=== PATIENT | female | born 1980 | race Caucasian/White ===

== ENCOUNTER 2025-01-25 19:28 | Emergency (ER) | payer OTHER ==
[2025-01-25] MEDS ORDERED: METHYLPREDNISOLONE 125 MG INJ ONE (22:09)
[2025-01-25] MEDS ORDERED: DIPHENHYDRAMINE 50 MG/ML VIAL ONE (22:10)
[2025-01-25] MEDS ORDERED: FAMOTIDINE 20 MG/2 ML VIAL IV ONE (22:10)
[2025-01-25] MEDS ORDERED: NA CHLORIDE 0.9% 1,000 ML ONE (22:10)
[2025-01-25 22:16] LABS: Absolute Lymphocytes (CBC) 2.5 K/uL (0.7-4.9); Hematocrit 30.1 % (36.0-45.0); Hemoglobin 10.1 g/dL (12.0-15.0); MCH 28.2 pg (27.0-35.0); MCHC 33.5 g/dL (32.0-36.0); MCV 84.2 fL (80-100); MPV 8.4 fL (7.6-11.3); Nucleated RBC Absolute Count 0.0 (0-0); Nucleated Red Blood Cells % 0.0 % (0-0); RBC Red Blood Cell Count 3.57 M/uL (3.86-4.86); White Blood Count 7.80 thou/uL (4.3-10.9)
[2025-01-25 22:24] LABS: Urine Culture Reflex Order REFLEXED; Urine Microscopic Reflex YN ORDER UMIC
[2025-01-25 22:34] LABS: ALT/SGPT 30 U/L (13-56); AST/SGOT 31 U/L (15-37); Albumin 3.8 g/dL (3.4-5.0); Albumin/Globulin Ratio 1.0 (1.1-1.8); Alkaline Phosphatase 79 U/L (45-117); Anion Gap 9.0 mEq/L (5.0-15.0); BUN Blood Urea Nitrogen 24 mg/dL (7-18); Bilirubin Indirect, Calculated 0.3 mg/dL (0.2-0.8); Globulin 3.7 g/dL (2.3-3.5); Glucose Level 97 mg/dL (74-106); Magnesium 2.1 mg/dL (1.6-2.4); Potassium 3.0 mEq/L (3.5-5.1); Troponin High Sensitivity 5.3 pg/mL (<58.9)
[2025-01-25] MEDS ORDERED: POTASSIUM 25 MEQ EFFERV TAB ONE (23:57)
[2025-01-26 02:33] LABS: METHAMPHETAM POSITIVE (NEGATIVE); THC Cannibis NEGATIVE (NEGATIVE)
--- NOTE | 2025-01-26 03:18 | EDPHYS ---
Physician Documentation [facility] Name: Zelda Leon Age: 44 yrs Sex: Female : 1980 Arrival Date: 01/25/2025 Time: 19:28 Bed 14 Private MD: ED Physician Carlo Russ HPI: 01/25 21:30 This 44 yrs old Female presents to ER via Ambulatory with complaints of body cp pain/burning feeling, Rash. 21:30 The patient's rash thought to be caused by an unknown cause. cp 21:30 The rash is located on the body diffusely. The rash can be described as urticarial, cp hives. Onset: The symptoms/episode began/occurred suddenly, just prior to arrival. Associated signs and symptoms: Pertinent positives: burning sensation, fever, itching, nausea. Severity of symptoms: in the emergency department the symptoms are worse moderately. Treatment given at home: none. 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 - Infectious Disease History:: Denies. - Social history:: Smoking status: Patient reports the use of cigarette tobacco products, smokes one-half pack cigarettes per day, Patient/guardian denies using alcohol, street drugs, IV drugs. ROS: 21:35 Constitutional: Positive for body aches, fever, Negative for poor PO intake, cp 21:35 Cardiovascular: Negative for chest pain, edema, palpitations, cp 21:35 Respiratory: Negative for cough, shortness of breath, wheezing, 21:35 Abdomen/GI: Negative for abdominal pain, vomiting, diarrhea, constipation, 21:35 Skin: Positive for rash, diffusely, 21:35 Neuro: Negative for altered mental status, cp 21:35 All other systems are negative, Exam: 21:45 Constitutional: The patient appears in no acute distress, alert, awake, cp non-diaphoretic, non-toxic, well developed, well nourished, anxious, uncomfortable, 21:45 Head/Face: Normocephalic, atraumatic. cp 21:45 Eyes: Periorbital structures: appear normal, Pupils: equal, round, and reactive to light and accomodation, Extraocular movements: intact throughout, Conjunctiva: normal, no exudate, no injection, Sclera: no appreciated abnormality, Lids and lashes: appear normal, bilaterally, 21:45 ENT: External ear(s): are unremarkable, Mouth: is normal, Posterior pharynx: Airway: no evidence of obstruction, patent, 22:21 ECG was reviewed by the Attending Physician. cp Vital Signs: 20:41 BP 117 / 85; Pulse 108; Resp 20; Temp 98.1; Pulse Ox 98% ; Weight 63.5 kg; Height 5 ft. bp 1 in. ; 01/26 00:12 BP 107 / 59; Pulse 94; Resp 16; Pulse Ox 100% on R/A; kd4 02:03 BP 104 / 69; Pulse 74; Pulse Ox 100% on R/A; kd4 05:02 BP 96 / 59; Pulse 78; Pulse Ox 96% on R/A; kd4 06:08 BP 93 / 61; Pulse 74; Resp 16; Pulse Ox 99% ; kd4 06:52 BP 103 / 69; Pulse 70; Resp 16; Pulse Ox 100% on R/A; kd4 07:19 BP 113 / 72; Pulse 60; Resp 16; Pulse Ox 96% on R/A; ll1 01/25 20:41 Body Mass Index 26.45 (63.50 kg, 154.94 cm) bp Osmel Coma Score: 01/25 22:30 Eye Response: spontaneous(4). Verbal Response: oriented(5). Motor Response: obeys kd4 commands(6). Total: 15. MDM: 20:25 Medical Screening Exam initiated cp 01/26 19:08 Differential diagnosis: impetigo, varicella, allergic reaction, parasite infection, sp4 carcinoma. Data reviewed: vital signs, nurses notes, lab test result(s). Consideration of Admission/Observation Escalation of care including admission/observation considered. ED course: Patient woke up, stable for discharge home. 19:13 ED course: Patient did receive some Benadryl for allergic reaction. Patient was very sp4 drowsy. But manage to wake up patient at 7 AM. She was found stable for discharge home.. 01/25 21:25 Order name: Basic Metabolic Panel; Complete Time: 23:50 cp 01/25 23:50 Interpretation: Normal except: K 3.0; BUN 24; GFR 89. cp 01/25 21:25 Order name: CBC with Diff; Complete Time: 23:50 cp 01/25 23:50 Interpretation: Normal except: RBC 3.57; HGB 10.1; HCT 30.1; PLT 430; RDW 18.2. cp 01/25 21:25 Order name: LFT's; Complete Time: 23:50 cp 01/25 23:51 Interpretation: Normal except: GLOB 3.7; A/G 1.0. cp 01/25 21:25 Order name: Magnesium; Complete Time: 23:50 cp 01/25 21:25 Order name: Troponin HS; Complete Time: 23:50 cp 01/25 21:25 Order name: Lactate w/ 2H reflex if indic.; Complete Time: 23:50 cp 01/25 21:25 Order name: UA Rfx Neftaly Cult if indicated; Complete Time: 23:50 cp 01/25 23:50 Interpretation: Normal except: UCLA Turbid; Urine SG > 1.030; UKET 2+; UPROT TRACE; cp UWBC 10-20; URBC 5-10. 01/25 22:29 Order name: Urine Culture EDMS 01/26 01:13 Order name: UDS; Complete Time: 19:16 cp 01/25 21:25 Order name: XRAY Chest (1 view); Complete Time: 19:16 cp 01/25 21:25 Order name: Cardiac monitoring; Complete Time: 22:19 cp 01/25 21:25 Order name: EKG - Nurse/Tech; Complete Time: 22:18 cp 01/25 21:25 Order name: IV Saline Lock; Complete Time: 22:19 cp 01/25 21:25 Order name: Labs collected and sent; Complete Time: 22:19 cp 01/25 21:25 Order name: O2 Per Protocol; Complete Time: 22:19 cp 01/25 21:25 Order name: O2 Sat Monitoring; Complete Time: 22:19 cp EC/29 22:21 Rate is 103 beats/min. Rhythm is regular. HI interval is normal. QRS interval is cp normal. QT interval is normal. Interpreted by me. Reviewed by me. Administered Medications: 22:30 Drug: MethylPrednisoLONE IVP 125 mg IVP once Route: IVP; Site: right antecubital; kd4 01/26 01:06 Follow up: Response: No adverse reaction kd4 01/25 22:30 Drug: diphenhydrAMINE IVP 50 mg IVP once Route: IVP; Site: right antecubital; kd4 01/26 01:06 Follow up: Response: No adverse reaction kd4 01/25 22:30 Drug: Famotidine IVP 20 mg IVP once; dilute with 10 mL 0.9% NaCl; give over 2 minutes kd4 Route: IVP; Site: right antecubital; 01/26 01:06 Follow up: Response: No adverse reaction kd4 01/25 22:30 Drug: NS 0.9% IV 1000 ml IV at 1000 ml once; to be given as a bolus over 90 minutes kd4 Route: IV; Rate: 1000 ml; Site: right antecubital; 01/26 01:06 Follow up: IV Status: Completed infusion kd4 07:03 Drug: Potassium PO Effervescent Tablet 50 mEq PO once; dissolve in 4 ounces of water or kd4 juice Route: PO; 07:20 Follow up: Response: No adverse reaction ll1 07:03 Drug: Potassium PO Effervescent Tablet 25 mEq PO once; dissolve in 4 ounces of water or kd4 juice Route: PO; 07:20 Follow up: Response: No adverse reaction ll1 Disposition: 19:07 Co-signature as Attending Physician, Carlo Russ MD I agree with the assessment sp4 and plan of care. I reviewed the patient's care provided by Advanced Practice Provider \T\ agree w/ the diagnosis \T\ care plan. I personally saw the pt \T\ performed a substantive portion of the visit, incldng all aspects of the (History/Exam/Medical Decision Making). Disposition Summary: 01/26/25 03:17 Discharge Ordered Notes: Location: Home cp Problem: new cp Symptoms: have improved cp Condition: Stable cp Diagnosis - Urticaria, unspecified cp - Other and unspecified allergy cp Followup: cp - With: Private Physician - When: 2 - 3 days - Reason: Recheck today's complaints Discharge Instructions: - Discharge Summary Sheet cp - Allergies, Adult cp - Hives cp Forms: - Medication Reconciliation Form cp - Antibiotic Education cp - Prescription Opioid Use cp - Patient Portal Instructions cp - Leadership Thank You Letter cp Prescriptions: - Hydroxyzine HCl 25 mg Oral Tablet - take 1 tablet ORAL route every 6 hours As needed; 30 tablet; Refills: 0, cp Product Selection Permitted - Pepcid 20 mg Oral Tablet - take 1 tablet ORAL route every 12 hours for 10 days; 20 tablet; Refills: 0, cp Product Selection Permitted - Prednisone 20 mg Oral tablet - take 2.5 tablet ORAL route once daily for 5 days; 12.5 tablet; Refills: 0, cp Product Selection Permitted Signatures: Dispatcher [employer] EDMS Matt Matson PA-C PAChicho Cabrera cp, RN RN bp Carlo Russ MD MD sp4 Abiola Evans RN RN kd4 Min Mcgregor RN ll1 Corrections: (The following items were deleted from the chart) 01/25 21:25 21:25 BASIC METABOLIC PANEL+C.LAB.BRZ ordered. EDMS EDMS 21: 21:25 CBC+H.LAB.BRZ ordered. EDMS EDMS 21:25 21:25 HEPATIC FUNCTION+C.LAB.BRZ ordered. EDMS EDMS 21:25 21:25 MAGNESIUM+C.LAB.BRZ ordered. EDMS EDMS 21:25 21:25 Troponin High Sensitivity+C.LAB.BRZ ordered. EDMS EDMS 21:25 21:25 LACTATE+C.LAB.BRZ ordered. EDMS EDMS 21:25 21:25 UA Rfx Neftaly Cult if indicated+U.LAB.BRZ ordered. EDMS EDMS :26 21:26 Chest Single View+RAD.RAD.BRZ ordered. EDMS EDMS 01/27 02:26 01/26 19:17 Constitutional: Negative for fever, chills, and weight loss, positive for cp acute onset of a rash sp4
--- NOTE | 2025-01-26 03:18 | ER ---
Nurse's Notes [facility] Name: Zelda Leon Age: 44 yrs Sex: Female : 1980 Arrival Date: 01/25/2025 Time: 19:28 Bed 14 Private MD: Diagnosis: Urticaria, unspecified;Other and unspecified allergy Presentation: 01/25 20:22 Note NOTE IN LOBBY WHEN CALLED \T\2019. 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 STARTED FEELING bp BURNING IN HER STOMACH. NOW HAVING A BURNING FEELING ALL OVER HER BODY. Coronavirus screen: At this time, the client does not indicate any symptoms associated with coronavirus-19. Ebola Screen: No symptoms or risks identified at this time. Initial Sepsis Screen: Does the patient meet any 2 criteria? HR > 90 bpm. Yes Does the patient have a suspected source of infection? No. Patient's initial sepsis screen is negative. Risk Assessment: Do you want to hurt yourself or someone else? Patient reports no desire to harm self or others. Onset of symptoms was January 25, 2025. 20:41 Method Of Arrival: Ambulatory bp 20:41 Acuity: LINUS 3 bp Triage Assessment: 20:43 General: Appears in no apparent distress. comfortable, unkempt, Behavior is agitated, bp anxious, restless. Pain: Complains of pain in abdomen AND ALL OVER BODY. Respiratory: Airway is patent Trachea Respiratory effort is even, unlabored, Respiratory pattern is regular, symmetrical. GI: Reports lower abdominal pain. Derm: Reports burning. 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 - Infectious Disease History:: Denies. - Social history:: Smoking status: Patient reports the use of cigarette tobacco products, smokes one-half pack cigarettes per day, Patient/guardian denies using alcohol, street drugs, IV drugs. Screenin:30 [facility] ED Fall Risk Assessment (Adult) History of falling in the last 3 months, kd4 including since admission No falls in past 3 months (0 pts) Confusion or Disorientation No (0 pts) Intoxicated or Sedated No (0 pts) Impaired Gait No (0 pts) Mobility Assist Device Used No (0 pt) Altered Elimination No (0 pt) Score/Fall Risk Level 0 - 2 = Low Risk Oriented to surroundings, Maintained a safe environment. Abuse screen: Denies threats or abuse. Nutritional screening: No deficits noted. Tuberculosis screening: No symptoms or risk factors identified. Assessment: 22:30 General: C/o of generalized burning sensation. Neuro: Denies weakness dizziness. kd4 Respiratory: Denies shortness of breath. 23:36 General: patient in bed sleeping. kd4 01/26 00:11 General: Patient sleeping , attempt to wake patient to administer potassium but patient kd4 very sleepy, will answer but not staying up enough to take med. 03:31 General: D/c order placed by PA whenever patient awaken. Patient sleeping . kd4 Vital Signs: 01/25 20:41 BP 117 / 85; Pulse 108; Resp 20; Temp 98.1; Pulse Ox 98% ; Weight 63.5 kg; Height 5 ft. bp 1 in. ; 01/26 00:12 BP 107 / 59; Pulse 94; Resp 16; Pulse Ox 100% on R/A; kd4 02:03 BP 104 / 69; Pulse 74; Pulse Ox 100% on R/A; kd4 05:02 BP 96 / 59; Pulse 78; Pulse Ox 96% on R/A; kd4 06:08 BP 93 / 61; Pulse 74; Resp 16; Pulse Ox 99% ; kd4 06:52 BP 103 / 69; Pulse 70; Resp 16; Pulse Ox 100% on R/A; kd4 07:19 BP 113 / 72; Pulse 60; Resp 16; Pulse Ox 96% on R/A; ll1 01/25 20:41 Body Mass Index 26.45 (63.50 kg, 154.94 cm) bp Osmel Coma Score: 01/25 22:30 Eye Response: spontaneous(4). Verbal Response: oriented(5). Motor Response: obeys kd4 commands(6). Total: 15. ED Course: 19:33 Patient arrived in ED. gm2 19:35 [facility] cp 19:35 Carlo Russ MD is Attending Physician. cp 20:43 Triage completed. bp 20:43 Arm band placed on right wrist. Patient placed in an exam room, on a stretcher. bp 20:44 Abiola Evans, RN is Primary Nurse. kd4 22:03 XRAY Chest (1 view) In Process Unspecified. EDMS 22:19 Initial lab(s) drawn, by laboratory tester, sent to lab. Inserted saline lock: 20 gauge in right ts3 antecubital area, using aseptic technique. Blood collected. Flushed with 10 mL NS. 22:19 EKG done, by tool repair technician. reviewed by Matt Matson PA-C. ts3 22:30 Patient has correct armband on for positive identification. Side rails up X2. Adult w/ kd4 patient. Client placed on continuous cardiac and pulse oximetry monitoring. NIBP monitoring applied. photographic enlarger operator on. Pulse ox on. NIBP on. 01/26 07:00 Provided Education on: ER procedures and process. ll1 07:19 No provider procedures requiring assistance completed. IV discontinued, intact, ll1 bleeding controlled, No redness/swelling at site. Pressure dressing applied. Administered Medications: 01/25 22:30 Drug: MethylPrednisoLONE IVP 125 mg IVP once Route: IVP; Site: right antecubital; kd4 01/26 01:06 Follow up: Response: No adverse reaction kd4 01/25 22:30 Drug: diphenhydrAMINE IVP 50 mg IVP once Route: IVP; Site: right antecubital; kd4 01/26 01:06 Follow up: Response: No adverse reaction kd4 01/25 22:30 Drug: Famotidine IVP 20 mg IVP once; dilute with 10 mL 0.9% NaCl; give over 2 minutes kd4 Route: IVP; Site: right antecubital; 01/26 01:06 Follow up: Response: No adverse reaction kd4 01/25 22:30 Drug: NS 0.9% IV 1000 ml IV at 1000 ml once; to be given as a bolus over 90 minutes kd4 Route: IV; Rate: 1000 ml; Site: right antecubital; 01/26 01:06 Follow up: IV Status: Completed infusion kd4 07:03 Drug: Potassium PO Effervescent Tablet 50 mEq PO once; dissolve in 4 ounces of water or kd4 juice Route: PO; 07:20 Follow up: Response: No adverse reaction 1 07:03 Drug: Potassium PO Effervescent Tablet 25 mEq PO once; dissolve in 4 ounces of water or kd4 juice Route: PO; 07:20 Follow up: Response: No adverse reaction ll1 Medication: 01/25 22:30 VIS not applicable for this client. kd4 Outcome: 01/26 03:17 Discharge ordered by . harinder 07:19 Discharged to home ambulatory, [facility] 07:19 Condition: stable 07:19 Discharge instructions given to patient, Instructed on discharge instructions, follow up and referral plans. medication usage, Demonstrated understanding of instructions, follow-up care, medications, Prescriptions given X 3, 07:21 Patient left the ED. 1 Signatures: Dispatcher [employer] EDMS Matt Matson, DIXON PA-Chicho Mascorro cp, RN RN Min Hitchcock RN RN ll1 Michelle Fulton 2 Abiola Evans RN RN kd4 Isela Andrew 3
--- NOTE | 2025-01-26 05:18 | RAD REPORT ---
EXAMINATION: ONE VIEW CHEST XR CLINICAL INDICATION: Female, 44 years old.,SOB TECHNIQUE: Frontal chest projection is submitted. Examination is limited by patient positioning and t echnique. COMPARISON: No prior exam. FINDINGS: The lungs are well inflated. Blunting of the costophrenic angles, with reflect pleural thickening or small effusions. No pneumothorax. The heart is normal in size. Mediastinal contours are unremarkable. IMPRESSION: Blunting of the costophrenic angles, could reflect pleural thickening or small effusions.
[2025-01-26 07:25] VITALS: TEMP 98.1
[2025-01-26 07:32] VITALS: BP 113/72; O2SAT 96
== END 2025-01-26 07:21 | disposition home or self-care (01) ==
LOC: ER 19:28
DX: L50.9 Urticaria, unspecified (principal); Z91.048 Other nonmedicinal substance allergy status; F17.210 Nicotine dependence, cigarettes, uncomplicated; Z98.82 Breast implant status
CPT/HCPCS: 96361; 93005; 87088; 85025; 81001; 87086; 80048; 36415; 83735; 80076; 83605; 84484; 80307; 71045; 96375; 96374; 99285; J1200; J2919; J7030